=== PATIENT | male | born 1990 ===

== ENCOUNTER 2020-03-03 11:59 | Inpatient (IN) ==
[2020-03-03] MEDS ORDERED: GLUCAGON 1 MG VIAL IM PRN (14:25)
[2020-03-03] MEDS ORDERED: DEXTROSE 10% 250 ML BAG IV PRN (14:25)
[2020-03-03] MEDS ORDERED: chlordiazePOXIDE 10 MG CAPSULE PO PRN (15:02)
[2020-03-03 15:16] LABS: Basophils % 0.7 % (0.0-0.8); Eosinophils % 1.7 % (0.00-10.9); Hematocrit 34.5 VOL% (42.0-52.0); Hemoglobin 11.7 GM/DL (14.0-18.0); Immature Granulocytes % 0.6 %; Lymphocytes % 14.4 % (21.2-54.2); Mean Corpuscular HGB Conc 33.9 GM/DL (32-36); Mean Corpuscular Volume 101.8 FL (87-102); Mean Platelet Volume 11.3 FL (9.6-12.0); Monocytes % 13.3 % (1.7-12.7); Neutrophils % 69.3 % (38.7-73.9); Platelet Count 52 T/CUMM (130-400); Red Blood Count 3.39 MC/CUMM (3.8-5.5); Red Cell Distribution Width 15.6 % (9.3-17.3); White Blood Count 7.2 T/CUMM (4-12)
[2020-03-03 15:17] LABS: Basophils # 0.1 10*3/uL (0.0-0.2); Eosinophils # 0.1 10*3/uL (0.0-0.87); Immature Granulocytes Absolute 0.04 #
[2020-03-03 15:33] LABS: Alanine Aminotransferase 42 U/L (16-61); Albumin 2.2 G/DL (3.4-5.0); Alkaline Phosphatase 83 U/L (45-117); Aspartate Amino Transferase 152 U/L (0-37); Blood Urea Nitrogen 8 MG/DL (7-18); Calcium 7.9 MG/DL (8.5-10.1); Estimated Glom Filtration Rate 173 ML/MIN; Glucose 88 MG/DL (74-106); HDL Cholesterol < 10 MG/DL (40-60); Osmolality,Calculated 260.5 MOS/KG (273-304); Total Protein 7.3 G/DL (6.4-8.3); Triglycerides 211 MG/DL (2-150); VLDL CHOLESTEROL 42.2 MG/DL
[2020-03-03] MEDS: THIAMINE 100 MG TABLET PO SCH (15:39)
[2020-03-03] MEDS ORDERED: IBUPROFEN 600 MG TABLET PO ONE (15:42)
[2020-03-03] MEDS ORDERED: IBUPROFEN 600 MG TABLET PO PRN (15:42)
[2020-03-03] MEDS: POTASSIUM PHOS/SOD PHOS 250 MG TABLET PO SCH ×2 (16:52→22:35)
[2020-03-03] MEDS: PIPERACILLIN/TAZOBACTAM 3,375 MG in SODIUM CHLORIDE 0.9% 100 ML IV SCH (16:53)
[2020-03-03] MEDS: POTASSIUM CHLORIDE RIDER 10 MEQ in PREMIX 1 EACH IV PRN ×5 (16:54→22:51)
[2020-03-03] MEDS ORDERED: cefTRIAXone 1,000 MG in SYRINGE 1 EACH IV SCH (17:00)
[2020-03-03 17:12] LABS: Amorphous Crystals,Urine Occasional /HPF (Few); Apearance,Urine CLEAR (Clear); Bacteria,Urine Occasional /HPF (Few); Blood, Urine Negative (Negative); Glucose,Urine (UA) Negative (Negative); Ketones,Urine Negative (Negative); Mucus,Urine Occasional /LPF (Occasional); Nitrite,Urine Negative (Negative); Protein,Urine 30 MG/DL; Squamous Epithelial Cell,Urine Occasional /HPF (0-10); Urine Color Amber (Yellow); Urine Specific Gravity 1.017 (1.001-1.035)
[2020-03-03 17:14] LABS: Bilirubin,Urine Moderate mg/dL (Negative)
[2020-03-03] MEDS: FOLIC ACID 1 MG TABLET PO SCH (22:36)
[2020-03-03] MEDS: PANTOPRAZOLE 40 MG VIAL IV SCH (22:46)
[2020-03-04] MEDS: POTASSIUM CHLORIDE RIDER 10 MEQ in PREMIX 1 EACH IV PRN (00:51)
[2020-03-04] MEDS: PIPERACILLIN/TAZOBACTAM 3,375 MG in SODIUM CHLORIDE 0.9% 100 ML IV SCH ×3 (02:43→17:46)
[2020-03-04 02:59] LABS: Basophils # 0.1 10*3/uL (0.0-0.2); Basophils % 0.9 % (0.0-0.8); Eosinophils # 0.2 10*3/uL (0.0-0.87); Eosinophils % 2.5 % (0.00-10.9); Hematocrit 33.5 VOL% (42.0-52.0); Hemoglobin 11.5 GM/DL (14.0-18.0); Immature Granulocytes % 0.4 %; Immature Granulocytes Absolute 0.03 #; Lymphocytes % 15.1 % (21.2-54.2); Mean Corpuscular HGB Conc 34.3 GM/DL (32-36); Mean Platelet Volume 11.4 FL (9.6-12.0); Monocytes % 13.3 % (1.7-12.7); Neutrophils % 67.8 % (38.7-73.9); Red Blood Count 3.35 MC/CUMM (3.8-5.5); Red Cell Distribution Width 15.9 % (9.3-17.3); White Blood Count 6.7 T/CUMM (4-12)
[2020-03-04 03:05] LABS: Calcium 7.5 MG/DL (8.5-10.1); Osmolality,Calculated 264.2 MOS/KG (273-304); Total Protein 6.8 G/DL (6.4-8.3)
[2020-03-04 03:06] LABS: Calcium 7.3 MG/DL (8.5-10.1); Osmolality,Calculated 263.2 MOS/KG (273-304)
[2020-03-04 03:09] LABS: Bilirubin,Total 13.1 MG/DL (0.2-1.0)
[2020-03-04 03:18] LABS: Platelet Count 50 T/CUMM (130-400)
[2020-03-04] MEDS: MAGNESIUM SULF RIDER 2 GM in PREMIX 1 EACH IV PRN ×2 (06:44→15:35)
[2020-03-04 06:59] LABS: % Iron Saturation 47.3 % (18-50); Ferritin 1071.4 ng/ml (26-388)
[2020-03-04 07:06] LABS: Bilirubin,Direct 8.92 MG/DL (0.0-0.20); Bilirubin,Indirect 3.8 MG/DL (0.0-1.0); Total Protein 6.8 G/DL (6.4-8.3)
[2020-03-04 07:08] LABS: Bilirubin,Total 12.7 MG/DL (0.2-1.0)
[2020-03-04] MEDS: PANTOPRAZOLE 40 MG VIAL IV SCH ×2 (09:57→22:02)
[2020-03-04] MEDS: THIAMINE 100 MG TABLET PO SCH ×2 (10:03→11:14)
[2020-03-04] MEDS: FOLIC ACID 1 MG TABLET PO SCH ×3 (10:03→22:02)
[2020-03-04] MEDS: POTASSIUM PHOS/SOD PHOS 250 MG TABLET PO SCH ×3 (10:04→12:50)
[2020-03-04 10:24] LABS: Hepatitis B Core IgM Quant < 0.05 Index; Hepatitis B Surface Ag Quant < 0.10 Index; Hepatitis B Surface Ag Result Negative (Negative); Hepatitis C Virus Ab Quant 0.37 Index; Hepatitis C Virus Ab Result Negative (Negative)
[2020-03-04] MEDS: POTASSIUM CHLORIDE 20 MEQ TABLET PO PRN ×4 (11:14→17:46)
[2020-03-04] MEDS ORDERED: BISACODYL 5 MG TABLET PO ONE (12:00)
[2020-03-04] MEDS ORDERED: POLYETHYLENE GLYCOL POWDER 255 GM BOTTLE PO ONE (15:00)
[2020-03-05] MEDS: PIPERACILLIN/TAZOBACTAM 3,375 MG in SODIUM CHLORIDE 0.9% 100 ML IV SCH ×3 (00:24→17:52)
[2020-03-05] MEDS: POTASSIUM CHLORIDE 20 MEQ TABLET PO PRN ×4 (00:24→07:09)
[2020-03-05 05:47] LABS: Basophils # 0.1 10*3/uL (0.0-0.2); Basophils % 0.6 % (0.0-0.8); Eosinophils # 0.3 10*3/uL (0.0-0.87); Eosinophils % 3.2 % (0.00-10.9); Hematocrit 32.6 VOL% (42.0-52.0); Hemoglobin 11.3 GM/DL (14.0-18.0); Immature Granulocytes % 0.6 %; Immature Granulocytes Absolute 0.05 #; Lymphocytes # 1.1 10*3/uL (1.4-4.0); Lymphocytes % 14.1 % (21.2-54.2); Mean Corpuscular HGB Conc 34.7 GM/DL (32-36); Mean Corpuscular Volume 100.9 FL (87-102); Mean Platelet Volume 11.4 FL (9.6-12.0); Monocytes % 17.6 % (1.7-12.7); Neutrophils % 63.9 % (38.7-73.9); Red Blood Count 3.23 MC/CUMM (3.8-5.5); Red Cell Distribution Width 16.4 % (9.3-17.3); White Blood Count 7.9 T/CUMM (4-12)
[2020-03-05] MEDS ORDERED: MAGNESIUM CITRATE 300 ML BOTTLE PO ONE (06:00)
[2020-03-05 06:07] LABS: INR 1.6; PT Patient Result 16.6 SECS (9.8-11.9)
[2020-03-05 06:11] LABS: Platelet Count 64 T/CUMM (130-400)
[2020-03-05 06:14] LABS: Albumin 2.1 G/DL (3.4-5.0); Calcium 8.1 MG/DL (8.5-10.1); Osmolality,Calculated 261.5 MOS/KG (273-304)
[2020-03-05 06:28] LABS: Bilirubin,Total 14.7 MG/DL (0.2-1.0)
[2020-03-05 06:44] LABS: Band Neutrophils 2 % (0-10); Eosinophils 1 % (0-10); Hypochromasia 1+; Lymphocytes 9 % (20-55); Segmented Neutrophils 71 % (50-85); Total Cells Counted 100
[2020-03-05 06:45] LABS: Macrocytosis 1+; Platelet Estimate Decreased
[2020-03-05] MEDS ORDERED: POTASSIUM CHLORIDE 20 MEQ/15 ML UDCUP PO ONE (08:53)
[2020-03-05] MEDS ORDERED: propofoL 200 MG/20 ML VIAL IV ONE (09:00)
[2020-03-05] MEDS ORDERED: LIDOCAINE 2% 5 ML VIAL ONE (09:00)
[2020-03-05] MEDS: PANTOPRAZOLE 40 MG VIAL IV SCH ×2 (09:18→22:02)
[2020-03-05] MEDS: POTASSIUM CHLORIDE 20 MEQ TABLET PO SCH (10:07)
[2020-03-05] MEDS: FOLIC ACID 1 MG TABLET PO SCH ×2 (10:07→22:02)
[2020-03-05] MEDS: THIAMINE 100 MG TABLET PO SCH (10:08)
[2020-03-05] MEDS: POTASSIUM CHLORIDE INJ 30 MEQ in SODIUM CHLORIDE 0.9% 1,000 ML IV SCH ×2 (10:26→20:52)
[2020-03-05] MEDS ORDERED: MIDAZOLAM 2 MG/2 ML VIAL ONE (12:58)
[2020-03-05 14:06] LABS: Smooth Muscle Antibody Negative (Negative)
[2020-03-05] MEDS: POTASSIUM CHLORIDE RIDER 10 MEQ in PREMIX 1 EACH IV SCH (14:14)
[2020-03-05] MEDS: LACTATED RINGERS 1,000 ML IV SCH (14:14)
[2020-03-05 16:21] LABS: Antinuclear Ab, S 1.3 U
[2020-03-06] MEDS: PIPERACILLIN/TAZOBACTAM 3,375 MG in SODIUM CHLORIDE 0.9% 100 ML IV SCH ×3 (02:45→16:44)
[2020-03-06] MEDS: POTASSIUM CHLORIDE INJ 30 MEQ in SODIUM CHLORIDE 0.9% 1,000 ML IV SCH ×2 (04:58→14:43)
[2020-03-06] MEDS: FOLIC ACID 1 MG TABLET PO SCH ×2 (08:21→21:35)
[2020-03-06] MEDS: POTASSIUM CHLORIDE 20 MEQ TABLET PO SCH (08:21)
[2020-03-06] MEDS: THIAMINE 100 MG TABLET PO SCH (08:21)
[2020-03-06] MEDS: PANTOPRAZOLE 40 MG VIAL IV SCH ×2 (08:29→21:39)
[2020-03-06] MEDS ORDERED: LIDOCAINE 2% 5 ML VIAL ONE (09:00)
[2020-03-06] MEDS ORDERED: propofoL 200 MG/20 ML VIAL IV ONE (09:00)
[2020-03-06 09:14] LABS: Basophils # 0.1 10*3/uL (0.0-0.2); Basophils % 0.8 % (0.0-0.8); Eosinophils # 0.2 10*3/uL (0.0-0.87); Eosinophils % 3.3 % (0.00-10.9); Immature Granulocytes % 1.2 %; Immature Granulocytes Absolute 0.07 #; Lymphocytes % 16.4 % (21.2-54.2); Mean Corpuscular HGB Conc 33.3 GM/DL (32-36); Mean Corpuscular Volume 104.8 FL (87-102); Mean Platelet Volume 10.5 FL (9.6-12.0); Monocytes % 18.6 % (1.7-12.7); Neutrophils % 59.7 % (38.7-73.9); Red Blood Count 3.15 MC/CUMM (3.8-5.5); Red Cell Distribution Width 17.1 % (9.3-17.3)
[2020-03-06 09:26] LABS: Platelet Count 78 T/CUMM (130-400)
[2020-03-06 09:37] LABS: Albumin 1.9 G/DL (3.4-5.0); Calcium 7.9 MG/DL (8.5-10.1); Osmolality,Calculated 266.1 MOS/KG (273-304); Total Protein 6.8 G/DL (6.4-8.3)
[2020-03-06 09:40] LABS: Bilirubin,Total 13.8 MG/DL (0.2-1.0)
[2020-03-06 09:52] LABS: Atypical Lymphocytes Few; Band Neutrophils 3 % (0-10); Eosinophils 5 % (0-10); Hypochromasia 1+; Lymphocytes 17 % (20-55); Segmented Neutrophils 59 % (50-85); Total Cells Counted 100
[2020-03-06 09:53] LABS: Macrocytosis 1+
[2020-03-06] MEDS: LACTATED RINGERS 1,000 ML IV SCH ×2 (09:57→11:04)
[2020-03-06] MEDS: POTASSIUM CHLORIDE 20 MEQ TABLET PO PRN ×2 (14:43→16:43)
[2020-03-06] MEDS: PROPRANOLOL 20 MG TABLET PO SCH (21:35)
[2020-03-07] MEDS: PIPERACILLIN/TAZOBACTAM 3,375 MG in SODIUM CHLORIDE 0.9% 100 ML IV SCH ×2 (02:22→08:39)
[2020-03-07] MEDS: POTASSIUM CHLORIDE INJ 30 MEQ in SODIUM CHLORIDE 0.9% 1,000 ML IV SCH (04:52)
[2020-03-07 04:57] LABS: Basophils # 0.1 10*3/uL (0.0-0.2); Basophils % 1.2 % (0.0-0.8); Eosinophils # 0.2 10*3/uL (0.0-0.87); Hematocrit 33.6 VOL% (42.0-52.0); Hemoglobin 11.2 GM/DL (14.0-18.0); Immature Granulocytes Absolute 0.06 #; Lymphocytes # 1.1 10*3/uL (1.4-4.0); Lymphocytes % 17.5 % (21.2-54.2); Mean Corpuscular HGB Conc 33.3 GM/DL (32-36); Mean Corpuscular Volume 105.3 FL (87-102); Mean Platelet Volume 10.4 FL (9.6-12.0); Monocytes % 18.9 % (1.7-12.7); Neutrophils % 58.4 % (38.7-73.9); Platelet Count 91 T/CUMM (130-400); Red Blood Count 3.19 MC/CUMM (3.8-5.5); Red Cell Distribution Width 17.6 % (9.3-17.3)
[2020-03-07 05:21] LABS: Albumin 1.8 G/DL (3.4-5.0); Calcium 7.9 MG/DL (8.5-10.1); Osmolality,Calculated 265.2 MOS/KG (273-304); Total Protein 6.8 G/DL (6.4-8.3)
[2020-03-07 05:22] LABS: Calcium 7.9 MG/DL (8.5-10.1); Osmolality,Calculated 265.2 MOS/KG (273-304)
[2020-03-07 05:29] LABS: Bilirubin,Total 13.6 MG/DL (0.2-1.0)
[2020-03-07 05:33] LABS: Band Neutrophils 5 % (0-10); Eosinophils 3 % (0-10); Lymphocytes 18 % (20-55); Segmented Neutrophils 59 % (50-85); Total Cells Counted 100
[2020-03-07 05:34] LABS: Anisocytosis 1+
[2020-03-07 05:35] LABS: Macrocytosis 1+; Platelet Estimate Decreased
[2020-03-07] MEDS: POTASSIUM CHLORIDE 20 MEQ TABLET PO PRN (06:03)
[2020-03-07 08:03] VITALS: BP 118/67
[2020-03-07] MEDS: PROPRANOLOL 20 MG TABLET PO SCH (08:38)
[2020-03-07] MEDS: THIAMINE 100 MG TABLET PO SCH (08:38)
[2020-03-07] MEDS: POTASSIUM CHLORIDE 20 MEQ TABLET PO SCH (08:38)
[2020-03-07] MEDS: FOLIC ACID 1 MG TABLET PO SCH (08:38)
[2020-03-07] MEDS: PANTOPRAZOLE 40 MG VIAL IV SCH (08:39)
== END 2020-03-07 10:27 | disposition home or self-care (01) | DRG 432 ==
LOC: SUATTDRO 13:50 → N.TELES 13:50
PROVIDERS: ADMIT Internal Medicine; ATTEND Family Medicine

== ENCOUNTER 2020-03-16 10:00 | Inpatient (IN) ==
[~2020-03-16 10:00] MED LIST: LIDOCAINE 2% 5 ML VIAL ONE; propofoL 200 MG/20 ML VIAL IV ONE
[2020-03-16] MEDS ORDERED: DEXTROSE 10% 250 ML BAG IV PRN ×2 (12:52→14:09)
[2020-03-16] MEDS ORDERED: GLUCAGON 1 MG VIAL IM PRN ×2 (12:52→14:09)
[2020-03-16 13:24] LABS: Basophils % 0.4 % (0.0-0.8); Eosinophils # 0.1 10*3/uL (0.0-0.87); Eosinophils % 0.5 % (0.00-10.9); Hematocrit 22.7 VOL% (42.0-52.0); Hemoglobin 7.8 GM/DL (14.0-18.0); Immature Granulocytes % 2.3 %; Immature Granulocytes Absolute 0.25 #; Lymphocytes # 0.8 10*3/uL (1.4-4.0); Lymphocytes % 7.6 % (21.2-54.2); Mean Corpuscular HGB Conc 34.4 GM/DL (32-36); Mean Corpuscular Volume 104.6 FL (87-102); Mean Platelet Volume 10.6 FL (9.6-12.0); Monocytes % 9.9 % (1.7-12.7); Neutrophils % 79.3 % (38.7-73.9); Platelet Count 153 T/CUMM (130-400); Red Blood Count 2.17 MC/CUMM (3.8-5.5); Red Cell Distribution Width 17.1 % (9.3-17.3); White Blood Count 10.7 T/CUMM (4-12)
[2020-03-16 13:51] LABS: Albumin 1.7 G/DL (3.4-5.0); Calcium 7.8 MG/DL (8.5-10.1); Osmolality,Calculated 263.4 MOS/KG (273-304); Total Protein 6.2 G/DL (6.4-8.3)
[2020-03-16 13:54] LABS: Bilirubin,Total 24.9 MG/DL (0.2-1.0)
[2020-03-16] MEDS ORDERED: ONDANSETRON 4 MG/2 ML VIAL IV PRN (14:09)
[2020-03-16] MEDS ORDERED: SODIUM CHLORIDE 0.9% 1,000 ML IV PRN ×2 (14:13→16:04)
[2020-03-16] MEDS ORDERED: LORazepam 0.5 MG TABLET PO PRN (14:16)
[2020-03-16 14:31] LABS: Band Neutrophils 17 % (0-10); Eosinophils 1 % (0-10); Lymphocytes 10 % (20-55); Metamyelocytes 1 %; Nucleated Red Blood Cells 1 (0-5); Segmented Neutrophils 67 % (50-85); Total Cells Counted 100
[2020-03-16 14:32] LABS: Anisocytosis Slight; Macrocytosis Slight; Platelet Estimate Normal
[2020-03-16 14:33] LABS: Polychromasia Slight
[2020-03-16] MEDS: LACTULOSE 20 GM/30 ML UDCUP PO SCH ×2 (15:47→17:40)
[2020-03-16] MEDS: SODIUM CHLORIDE 0.9% 1,000 ML IV SCH (15:47)
[2020-03-16] MEDS: SODIUM BICARB INJ 100 MEQ in SODIUM CHLORIDE 0.45% 1,000 ML IV SCH (17:05)
[2020-03-16] MEDS: RIFAXIMIN 550 MG TABLET PO SCH (22:00)
[2020-03-17] MEDS: FOLIC ACID 1 MG TABLET PO SCH ×3 (00:59→20:17)
[2020-03-17] MEDS: PANTOPRAZOLE 40 MG VIAL IV SCH ×3 (01:06→20:18)
[2020-03-17] MEDS: SODIUM BICARB INJ 100 MEQ in SODIUM CHLORIDE 0.45% 1,000 ML IV SCH ×2 (01:06→10:45)
[2020-03-17] MEDS: LACTULOSE 20 GM/30 ML UDCUP PO SCH ×7 (01:10→20:17)
[2020-03-17 05:45] LABS: Basophils % 0.1 % (0.0-0.8); Eosinophils % 0.2 % (0.00-10.9); Hematocrit 25.7 VOL% (42.0-52.0); Hemoglobin 9.1 GM/DL (14.0-18.0); Immature Granulocytes % 2.4 %; Immature Granulocytes Absolute 0.33 #; Lymphocytes % 7.1 % (21.2-54.2); Mean Corpuscular HGB Conc 35.4 GM/DL (32-36); Mean Corpuscular Volume 97.3 FL (87-102); Mean Platelet Volume 10.9 FL (9.6-12.0); Monocytes % 12.2 % (1.7-12.7); Platelet Count 126 T/CUMM (130-400); Red Blood Count 2.64 MC/CUMM (3.8-5.5); Red Cell Distribution Width 18.2 % (9.3-17.3); White Blood Count 13.9 T/CUMM (4-12)
[2020-03-17 06:14] LABS: Band Neutrophils 6 % (0-10); Eosinophils 2 % (0-10); Hypochromasia 1+; Lymphocytes 5 % (20-55); Segmented Neutrophils 77 % (50-85); Total Cells Counted 100
[2020-03-17 06:15] LABS: Macrocytosis Slight
[2020-03-17 06:42] LABS: Albumin 1.4 G/DL (3.4-5.0); Calcium 7.8 MG/DL (8.5-10.1); Osmolality,Calculated 269.1 MOS/KG (273-304)
[2020-03-17 06:45] LABS: Bilirubin,Total 24.3 MG/DL (0.2-1.0)
[2020-03-17] MEDS: RIFAXIMIN 550 MG TABLET PO SCH ×2 (08:22→20:18)
[2020-03-17] MEDS: SODIUM CHLORIDE 0.9% 1,000 ML IV SCH ×3 (08:23→10:45)
[2020-03-17] MEDS: POTASSIUM CHLORIDE 20 MEQ TABLET PO PRN ×4 (12:06→20:17)
[2020-03-17] MEDS: SODIUM BICARB INJ 150 MEQ in STERILE WATER INJ 850 ML IV SCH ×2 (15:10→18:40)
[2020-03-17] MEDS: SODIUM BICARB INJ 100 MEQ in DEXTROSE 5% NACL 0.45% 1,000 ML IV SCH ×2 (15:11→15:14)
[2020-03-17 17:20] LABS: Apearance,Urine Cloudy (Clear); Urine Color Brown (Yellow); Urine Specific Gravity 1.025 (1.001-1.035)
[2020-03-17 17:21] LABS: Bilirubin,Urine 4 mg/dL (Negative); Blood, Urine Trace mg/dL (Negative); Glucose,Urine (UA) 50 mg/dL (Negative); Ketones,Urine Negative (Negative); Nitrite,Urine Negative (Negative); Protein,Urine 100 MG/DL; RBC,Urine Rare /HPF (0-4)
[2020-03-17 17:22] LABS: Squamous Epithelial Cell,Urine 5 /HPF (0-10); WBC,Urine 3 /HPF (0-6)
[2020-03-17 17:23] LABS: Bacteria,Urine Many /HPF (Few)
[2020-03-17 17:36] LABS: Microalbum/Creat Ratio Random 104.2 RATIO (0-30)
[2020-03-18] MEDS: LACTULOSE 20 GM/30 ML UDCUP PO SCH ×7 (00:52→21:46)
[2020-03-18] MEDS: SODIUM BICARB INJ 100 MEQ in DEXTROSE 5% NACL 0.45% 1,000 ML IV SCH ×6 (01:20→22:11)
[2020-03-18 02:30] LABS: Basophils % 0.2 % (0.0-0.8); Eosinophils # 0.3 10*3/uL (0.0-0.87); Eosinophils % 1.9 % (0.00-10.9); Hematocrit 23.4 VOL% (42.0-52.0); Hemoglobin 8.5 GM/DL (14.0-18.0); Immature Granulocytes % 4.1 %; Immature Granulocytes Absolute 0.61 #; Lymphocytes % 6.8 % (21.2-54.2); Mean Corpuscular HGB Conc 36.3 GM/DL (32-36); Mean Corpuscular Volume 96.3 FL (87-102); Mean Platelet Volume 10.9 FL (9.6-12.0); NRBC # 0.02 10*3/uL; Platelet Count 121 T/CUMM (130-400); Red Blood Count 2.43 MC/CUMM (3.8-5.5); White Blood Count 14.8 T/CUMM (4-12)
[2020-03-18 04:07] LABS: Albumin 1.4 G/DL (3.4-5.0); Calcium 7.6 MG/DL (8.5-10.1); Osmolality,Calculated 276.9 MOS/KG (273-304); Total Protein 5.9 G/DL (6.4-8.3)
[2020-03-18 04:09] LABS: Bilirubin,Total 24.4 MG/DL (0.2-1.0)
[2020-03-18 04:49] LABS: Band Neutrophils 2 % (0-10); Eosinophils 5 % (0-10); Hypochromasia 1+; Lymphocytes 6 % (20-55); Platelet Estimate Decreased; Segmented Neutrophils 78 % (50-85); Total Cells Counted 100
[2020-03-18 04:50] LABS: Macrocytosis Slight
[2020-03-18] MEDS ORDERED: SODIUM PHOSPHATE ENEMA 133 ML BOTTLE RECTAL ONE (06:00)
[2020-03-18] MEDS ORDERED: ceFAZolin 1,000 MG in SYRINGE 1 EACH IV ONE (09:00)
[2020-03-18] MEDS: FOLIC ACID 1 MG TABLET PO SCH ×3 (09:15→21:45)
[2020-03-18] MEDS: SODIUM CHLORIDE 0.9% 1,000 ML IV SCH (09:15)
[2020-03-18] MEDS: PANTOPRAZOLE 40 MG VIAL IV SCH ×3 (09:15→21:46)
[2020-03-18] MEDS: RIFAXIMIN 550 MG TABLET PO SCH ×3 (09:15→21:45)
[2020-03-18] MEDS ORDERED: LIDOCAINE 1%/EPI INJ 20 ML VIAL ONE (11:38)
[2020-03-18] MEDS ORDERED: BUPIVACAINE MPF 0.25% 30 ML VIAL ONE (11:38)
[2020-03-18] MEDS ORDERED: HEPARIN 5,000 UNIT/1 ML VIAL ONE (11:38)
[2020-03-18] MEDS ORDERED: SODIUM CHLORIDE 0.9% 250 ML IV SCH (13:00)
[2020-03-18] MEDS ORDERED: ceFAZolin 1,000 MG VIAL ONE (13:06)
[2020-03-18] MEDS ORDERED: propofoL 200 MG/20 ML VIAL IV ONE (13:30)
[2020-03-18] MEDS ORDERED: MIDAZOLAM 2 MG/2 ML VIAL ONE (13:31)
[2020-03-18] MEDS ORDERED: ETOMIDATE 40 MG/20 ML VIAL IV ONE (13:31)
[2020-03-18] MEDS ORDERED: SODIUM CHLORIDE 0.9% 100 ML IV ONE (13:31)
[2020-03-18 14:26] LABS: Hepatitis B Core IgM Quant 0.06 Index; Hepatitis B Surface Ag Quant < 0.10 Index; Hepatitis B Surface Ag Result Negative (Negative); Hepatitis C Virus Ab Quant 0.31 Index; Hepatitis C Virus Ab Result Negative (Negative)
[2020-03-18] MEDS: POTASSIUM CHLORIDE 20 MEQ TABLET PO PRN ×4 (16:14→23:28)
[2020-03-18] MEDS: predniSONE 20 MG TABLET PO SCH ×2 (16:53→17:00)
[2020-03-18] MEDS: cefTRIAXone 1,000 MG in SYRINGE 1 EACH IV SCH (16:53)
[2020-03-18 17:36] LABS: Hematocrit 23.4 VOL% (42.0-52.0); Hemoglobin 8.3 GM/DL (14.0-18.0)
[2020-03-18] MEDS ORDERED: HEPARIN 10,000 UNIT/10 ML VIAL IV SCH (20:45)
[2020-03-19] MEDS: LACTULOSE 20 GM/30 ML UDCUP PO SCH ×6 (02:18→21:33)
[2020-03-19] MEDS: SODIUM BICARB INJ 100 MEQ in DEXTROSE 5% NACL 0.45% 1,000 ML IV SCH ×3 (04:40→22:36)
[2020-03-19 05:49] LABS: Basophils % 0.2 % (0.0-0.8); Eosinophils % 0.1 % (0.00-10.9); Hematocrit 22.7 VOL% (42.0-52.0); Hemoglobin 8.4 GM/DL (14.0-18.0); Immature Granulocytes % 4.7 %; Immature Granulocytes Absolute 0.59 #; Lymphocytes # 0.5 10*3/uL (1.4-4.0); Lymphocytes % 3.9 % (21.2-54.2); Mean Corpuscular Volume 93.8 FL (87-102); Mean Platelet Volume 10.9 FL (9.6-12.0); Monocytes % 8.9 % (1.7-12.7); Neutrophils % 82.2 % (38.7-73.9); Platelet Count 123 T/CUMM (130-400); Red Blood Count 2.42 MC/CUMM (3.8-5.5); Red Cell Distribution Width 17.6 % (9.3-17.3); White Blood Count 12.5 T/CUMM (4-12)
[2020-03-19] MEDS ORDERED: SODIUM PHOSPHATE ENEMA 133 ML BOTTLE RECTAL ONE (06:00)
[2020-03-19 06:11] LABS: Albumin 1.3 G/DL (3.4-5.0); Calcium 7.3 MG/DL (8.5-10.1); Osmolality,Calculated 275.1 MOS/KG (273-304); Total Protein 5.7 G/DL (6.4-8.3)
[2020-03-19 06:17] LABS: Bilirubin,Total 24.3 MG/DL (0.2-1.0)
[2020-03-19 06:38] LABS: Band Neutrophils 8 % (0-10); Lymphocytes 3 % (20-55); Platelet Estimate Decreased; Segmented Neutrophils 81 % (50-85); Total Cells Counted 100
[2020-03-19 06:39] LABS: Hypochromasia 2+
[2020-03-19] MEDS: SODIUM CHLORIDE 0.9% 1,000 ML IV SCH (12:09)
[2020-03-19] MEDS: FOLIC ACID 1 MG TABLET PO SCH ×2 (14:38→20:44)
[2020-03-19] MEDS: predniSONE 20 MG TABLET PO SCH (14:39)
[2020-03-19] MEDS: RIFAXIMIN 550 MG TABLET PO SCH ×2 (14:39→20:44)
[2020-03-19] MEDS: PANTOPRAZOLE 40 MG VIAL IV SCH ×2 (14:42→20:44)
[2020-03-19] MEDS: POTASSIUM CHLORIDE 20 MEQ TABLET PO PRN (15:57)
[2020-03-19] MEDS ORDERED: POTASSIUM CHLORIDE RIDER 100 ML IV ONE (17:34)
[2020-03-19] MEDS: cefTRIAXone 1,000 MG in SYRINGE 1 EACH IV SCH (17:37)
[2020-03-20] MEDS: LACTULOSE 20 GM/30 ML UDCUP PO SCH ×6 (02:01→22:10)
[2020-03-20 05:46] LABS: INR 1.7; PT Patient Result 17.7 SECS (9.8-11.9)
[2020-03-20 06:08] LABS: Albumin 1.5 G/DL (3.4-5.0); Calcium 6.7 MG/DL (8.5-10.1); Osmolality,Calculated 283.8 MOS/KG (273-304); Total Protein 5.7 G/DL (6.4-8.3)
[2020-03-20 06:11] LABS: Bilirubin,Total 23.9 MG/DL (0.2-1.0)
[2020-03-20] MEDS: SODIUM BICARB INJ 100 MEQ in DEXTROSE 5% NACL 0.45% 1,000 ML IV SCH ×3 (07:17→20:59)
[2020-03-20 09:07] LABS: Basophils % 0.1 % (0.0-0.8); Hemoglobin 8.4 GM/DL (14.0-18.0); Immature Granulocytes % 4.1 %; Lymphocytes # 0.6 10*3/uL (1.4-4.0); Lymphocytes % 4.4 % (21.2-54.2); Mean Corpuscular HGB Conc 36.5 GM/DL (32-36); Mean Corpuscular Volume 97.9 FL (87-102); Mean Platelet Volume 10.9 FL (9.6-12.0); Neutrophils % 81.4 % (38.7-73.9); Platelet Count 115 T/CUMM (130-400); Red Blood Count 2.35 MC/CUMM (3.8-5.5); Red Cell Distribution Width 17.9 % (9.3-17.3); White Blood Count 14.5 T/CUMM (4-12)
[2020-03-20 09:26] LABS: Lymphocytes 3 % (20-55); Segmented Neutrophils 87 % (50-85); Total Cells Counted 100
[2020-03-20 09:27] LABS: Hypochromasia 1+; Platelet Estimate Decreased
[2020-03-20] MEDS: predniSONE 20 MG TABLET PO SCH (11:31)
[2020-03-20] MEDS: PANTOPRAZOLE 40 MG VIAL IV SCH ×2 (11:32→20:56)
[2020-03-20] MEDS: RIFAXIMIN 550 MG TABLET PO SCH ×2 (11:32→20:55)
[2020-03-20] MEDS: FOLIC ACID 1 MG TABLET PO SCH ×2 (11:32→20:55)
[2020-03-20] MEDS: POTASSIUM CHLORIDE 20 MEQ TABLET PO PRN ×4 (11:32→18:19)
[2020-03-20] MEDS: cefTRIAXone 1,000 MG in SYRINGE 1 EACH IV SCH (17:16)
[2020-03-21] MEDS: LACTULOSE 20 GM/30 ML UDCUP PO SCH ×5 (02:18→20:28)
[2020-03-21 07:17] LABS: Albumin 1.6 G/DL (3.4-5.0); Calcium 7.2 MG/DL (8.5-10.1); Osmolality,Calculated 278.5 MOS/KG (273-304); Total Protein 5.8 G/DL (6.4-8.3)
[2020-03-21 07:18] LABS: Bilirubin,Total 27.4 MG/DL (0.2-1.0)
[2020-03-21] MEDS: POTASSIUM CHLORIDE 20 MEQ TABLET PO PRN ×5 (09:28→17:19)
[2020-03-21] MEDS: predniSONE 20 MG TABLET PO SCH (09:28)
[2020-03-21] MEDS: FOLIC ACID 1 MG TABLET PO SCH ×2 (09:28→22:06)
[2020-03-21] MEDS: PANTOPRAZOLE 40 MG VIAL IV SCH ×2 (09:29→22:07)
[2020-03-21] MEDS: RIFAXIMIN 550 MG TABLET PO SCH ×2 (09:30→22:06)
[2020-03-21] MEDS: SODIUM BICARB INJ 100 MEQ in DEXTROSE 5% NACL 0.45% 1,000 ML IV SCH (09:35)
[2020-03-21] MEDS: cefTRIAXone 1,000 MG in SYRINGE 1 EACH IV SCH (17:19)
[2020-03-22] MEDS: LACTULOSE 20 GM/30 ML UDCUP PO SCH ×4 (01:20→19:46)
[2020-03-22 06:34] LABS: Albumin 1.6 G/DL (3.4-5.0); Calcium 7.8 MG/DL (8.5-10.1); Osmolality,Calculated 283.7 MOS/KG (273-304)
[2020-03-22 06:37] LABS: Bilirubin,Total 29.9 MG/DL (0.2-1.0)
[2020-03-22] MEDS: POTASSIUM CHLORIDE 20 MEQ TABLET PO PRN (06:52)
[2020-03-22] MEDS: RIFAXIMIN 550 MG TABLET PO SCH ×2 (08:38→22:24)
[2020-03-22] MEDS: POTASSIUM CHLORIDE 20 MEQ TABLET PO SCH (08:38)
[2020-03-22] MEDS: FOLIC ACID 1 MG TABLET PO SCH ×2 (08:38→22:24)
[2020-03-22] MEDS: SODIUM BICARBONATE 650 MG TABLET PO SCH ×3 (08:38→22:24)
[2020-03-22] MEDS: THIAMINE 100 MG TABLET PO SCH (08:38)
[2020-03-22] MEDS: PANTOPRAZOLE 40 MG VIAL IV SCH ×2 (08:39→22:27)
[2020-03-22] MEDS: ALBUMIN 25% 25 GM in PREMIX 1 EACH IV SCH ×2 (08:39→17:09)
[2020-03-22] MEDS: prednisoLONE 15 MG/5 ML ORAL.SYR PO SCH (09:45)
[2020-03-22] MEDS: PENTOXIFYLLINE 400 MG TABLET PO SCH (14:30)
[2020-03-22] MEDS: cefTRIAXone 1,000 MG in SYRINGE 1 EACH IV SCH (17:09)
[2020-03-23] MEDS: ALBUMIN 25% 25 GM in PREMIX 1 EACH IV SCH ×3 (00:27→15:20)
[2020-03-23] MEDS: LACTULOSE 20 GM/30 ML UDCUP PO SCH ×4 (02:12→21:14)
[2020-03-23 05:43] LABS: Basophils % 0.1 % (0.0-0.8); Hematocrit 23.3 VOL% (42.0-52.0); Hemoglobin 8.3 GM/DL (14.0-18.0); Immature Granulocytes % 6.9 %; Lymphocytes % 4.6 % (21.2-54.2); Mean Corpuscular HGB Conc 35.6 GM/DL (32-36); Mean Corpuscular Volume 98.7 FL (87-102); Mean Platelet Volume 11.8 FL (9.6-12.0); Monocytes % 11.1 % (1.7-12.7); Neutrophils % 77.3 % (38.7-73.9); Platelet Count 63 T/CUMM (130-400); Red Blood Count 2.36 MC/CUMM (3.8-5.5); Red Cell Distribution Width 18.3 % (9.3-17.3); White Blood Count 21.7 T/CUMM (4-12)
[2020-03-23 06:08] LABS: Albumin 2.1 G/DL (3.4-5.0); Calcium 8.3 MG/DL (8.5-10.1); Osmolality,Calculated 284.9 MOS/KG (273-304); Total Protein 5.6 G/DL (6.4-8.3)
[2020-03-23 06:12] LABS: Bilirubin,Total 28.7 MG/DL (0.2-1.0)
[2020-03-23 06:15] LABS: Band Neutrophils 2 % (0-10); Hypochromasia 1+; Lymphocytes 4 % (20-55); Platelet Estimate Decreased; Segmented Neutrophils 89 % (50-85); Total Cells Counted 100
[2020-03-23] MEDS: SODIUM BICARBONATE 650 MG TABLET PO SCH ×3 (15:14→22:02)
[2020-03-23] MEDS: PANTOPRAZOLE 40 MG VIAL IV SCH ×2 (15:18→22:02)
[2020-03-23] MEDS: prednisoLONE 15 MG/5 ML ORAL.SYR PO SCH (15:18)
[2020-03-23] MEDS: RIFAXIMIN 550 MG TABLET PO SCH ×2 (15:20→22:02)
[2020-03-23] MEDS: THIAMINE 100 MG TABLET PO SCH (15:20)
[2020-03-23] MEDS: POTASSIUM CHLORIDE 20 MEQ TABLET PO SCH (15:20)
[2020-03-23] MEDS: FOLIC ACID 1 MG TABLET PO SCH ×2 (15:20→22:02)
[2020-03-23] MEDS: PENTOXIFYLLINE 400 MG TABLET PO SCH (15:20)
[2020-03-23] MEDS: cefTRIAXone 1,000 MG in SYRINGE 1 EACH IV SCH (16:39)
[2020-03-24] MEDS: ALBUMIN 25% 25 GM in PREMIX 1 EACH IV SCH ×4 (00:18→23:58)
[2020-03-24] MEDS: LACTULOSE 20 GM/30 ML UDCUP PO SCH ×4 (00:59→20:51)
[2020-03-24 06:33] LABS: INR 2.2; PT Patient Result 22.4 SECS (9.8-11.9)
[2020-03-24 06:47] LABS: Albumin 2.5 G/DL (3.4-5.0); Calcium 8.5 MG/DL (8.5-10.1); Osmolality,Calculated 281.7 MOS/KG (273-304); Total Protein 5.5 G/DL (6.4-8.3)
[2020-03-24 06:54] LABS: Bilirubin,Total 30.7 MG/DL (0.2-1.0)
[2020-03-24] MEDS: SODIUM BICARBONATE 650 MG TABLET PO SCH ×3 (08:22→20:52)
[2020-03-24] MEDS: RIFAXIMIN 550 MG TABLET PO SCH ×2 (08:22→20:52)
[2020-03-24] MEDS: THIAMINE 100 MG TABLET PO SCH (08:22)
[2020-03-24] MEDS: PENTOXIFYLLINE 400 MG TABLET PO SCH (08:22)
[2020-03-24] MEDS: PANTOPRAZOLE 40 MG VIAL IV SCH ×2 (08:22→20:52)
[2020-03-24] MEDS: POTASSIUM CHLORIDE 20 MEQ TABLET PO SCH (08:22)
[2020-03-24] MEDS: FOLIC ACID 1 MG TABLET PO SCH ×2 (08:22→20:52)
[2020-03-24] MEDS: prednisoLONE 15 MG/5 ML ORAL.SYR PO SCH (08:41)
[2020-03-24] MEDS ORDERED: ACETAMINOPHEN 325 MG/10.15 ML UDCUP PO ONE (14:16)
[2020-03-24] MEDS: cefTRIAXone 1,000 MG in SYRINGE 1 EACH IV SCH (16:07)
[2020-03-25] MEDS: LACTULOSE 20 GM/30 ML UDCUP PO SCH ×4 (01:00→20:17)
[2020-03-25] MEDS: ALBUMIN 25% 25 GM in PREMIX 1 EACH IV SCH (09:14)
[2020-03-25] MEDS: prednisoLONE 15 MG/5 ML ORAL.SYR PO SCH (09:15)
[2020-03-25] MEDS: PANTOPRAZOLE 40 MG VIAL IV SCH ×2 (09:18→21:08)
[2020-03-25] MEDS: SODIUM BICARBONATE 650 MG TABLET PO SCH ×3 (09:19→21:07)
[2020-03-25] MEDS: POTASSIUM CHLORIDE 20 MEQ TABLET PO SCH (09:19)
[2020-03-25] MEDS: PENTOXIFYLLINE 400 MG TABLET PO SCH (09:19)
[2020-03-25] MEDS: FOLIC ACID 1 MG TABLET PO SCH ×2 (09:19→21:07)
[2020-03-25] MEDS: THIAMINE 100 MG TABLET PO SCH (09:20)
[2020-03-25] MEDS: RIFAXIMIN 550 MG TABLET PO SCH ×2 (09:20→21:06)
[2020-03-25 09:24] LABS: Basophils % 0.1 % (0.0-0.8); Eosinophils # 0.1 10*3/uL (0.0-0.87); Eosinophils % 0.3 % (0.00-10.9); Hematocrit 20.7 VOL% (42.0-52.0); Hemoglobin 7.3 GM/DL (14.0-18.0); Immature Granulocytes % 3.4 %; Lymphocytes # 1.3 10*3/uL (1.4-4.0); Mean Corpuscular HGB Conc 35.3 GM/DL (32-36); Mean Platelet Volume 11.6 FL (9.6-12.0); Monocytes % 7.9 % (1.7-12.7); Neutrophils % 83.3 % (38.7-73.9); Red Blood Count 2.09 MC/CUMM (3.8-5.5); Red Cell Distribution Width 18.6 % (9.3-17.3); White Blood Count 26.6 T/CUMM (4-12)
[2020-03-25 09:25] LABS: Platelet Count 53 T/CUMM (130-400)
[2020-03-25 09:30] LABS: INR 2.2; PT Patient Result 22.4 SECS (9.8-11.9)
[2020-03-25 09:51] LABS: Band Neutrophils 2 % (0-10); Hypochromasia 1+; Lymphocytes 5 % (20-55); Platelet Estimate Decreased; Segmented Neutrophils 92 % (50-85); Total Cells Counted 100
[2020-03-25 10:02] LABS: Albumin 2.5 G/DL (3.4-5.0); Calcium 9.1 MG/DL (8.5-10.1); Osmolality,Calculated 284.2 MOS/KG (273-304); Total Protein 5.5 G/DL (6.4-8.3)
[2020-03-25 10:04] LABS: Bilirubin,Total 30.8 MG/DL (0.2-1.0)
[2020-03-25] MEDS: AMPICILLIN 500 MG CAPSULE PO SCH ×2 (17:24→21:07)
[2020-03-25] MEDS: cefTRIAXone 1,000 MG in SYRINGE 1 EACH IV SCH (17:25)
[2020-03-26] MEDS: LACTULOSE 20 GM/30 ML UDCUP PO SCH ×4 (02:30→20:20)
[2020-03-26 05:05] LABS: Basophils % 0.1 % (0.0-0.8); Hematocrit 23.8 VOL% (42.0-52.0); Hemoglobin 8.1 GM/DL (14.0-18.0); Immature Granulocytes % 3.1 %; Immature Granulocytes Absolute 1.04 #; Mean Platelet Volume 11.6 FL (9.6-12.0); Monocytes % 7.1 % (1.7-12.7); Neutrophils % 86.7 % (38.7-73.9); Platelet Count 69 T/CUMM (130-400); Red Blood Count 2.31 MC/CUMM (3.8-5.5); Red Cell Distribution Width 18.5 % (9.3-17.3); White Blood Count 33.5 T/CUMM (4-12)
[2020-03-26 05:11] LABS: INR 2.1; PT Patient Result 21.3 SECS (9.8-11.9)
[2020-03-26 05:30] LABS: Hypochromasia 1+; Ovalocytes Slight; Platelet Estimate Decreased
[2020-03-26 05:38] LABS: Albumin 2.8 G/DL (3.4-5.0); Calcium 9.2 MG/DL (8.5-10.1); Osmolality,Calculated 292.9 MOS/KG (273-304); Total Protein 5.7 G/DL (6.4-8.3)
[2020-03-26] MEDS: FOLIC ACID 1 MG TABLET PO SCH ×2 (09:55→22:17)
[2020-03-26] MEDS: prednisoLONE 15 MG/5 ML ORAL.SYR PO SCH (09:55)
[2020-03-26] MEDS: AMPICILLIN 500 MG CAPSULE PO SCH ×4 (09:55→22:17)
[2020-03-26] MEDS: RIFAXIMIN 550 MG TABLET PO SCH ×2 (09:56→22:17)
[2020-03-26] MEDS: PANTOPRAZOLE 40 MG VIAL IV SCH ×2 (09:56→22:18)
[2020-03-26] MEDS: POTASSIUM CHLORIDE 20 MEQ TABLET PO SCH (09:56)
[2020-03-26] MEDS: SODIUM BICARBONATE 650 MG TABLET PO SCH ×3 (09:56→22:17)
[2020-03-26] MEDS: THIAMINE 100 MG TABLET PO SCH (09:56)
[2020-03-26] MEDS: PENTOXIFYLLINE 400 MG TABLET PO SCH (15:02)
[2020-03-26] MEDS: cefTRIAXone 1,000 MG in SYRINGE 1 EACH IV SCH (16:54)
[2020-03-27] MEDS: LACTULOSE 20 GM/30 ML UDCUP PO SCH ×3 (02:17→15:49)
[2020-03-27 10:02] LABS: Albumin 2.7 G/DL (3.4-5.0); Bilirubin,Direct 27.06 MG/DL (0.0-0.20)
[2020-03-27 10:05] LABS: Bilirubin,Total 35.1 MG/DL (0.2-1.0)
[2020-03-27] MEDS: prednisoLONE 15 MG/5 ML ORAL.SYR PO SCH (12:17)
[2020-03-27] MEDS: AMPICILLIN 500 MG CAPSULE PO SCH ×2 (12:18→17:43)
[2020-03-27] MEDS: FOLIC ACID 1 MG TABLET PO SCH (12:18)
[2020-03-27] MEDS: PANTOPRAZOLE 40 MG VIAL IV SCH (12:19)
[2020-03-27] MEDS: SODIUM BICARBONATE 650 MG TABLET PO SCH ×2 (12:19→15:49)
[2020-03-27] MEDS: THIAMINE 100 MG TABLET PO SCH (12:19)
[2020-03-27] MEDS: RIFAXIMIN 550 MG TABLET PO SCH (12:19)
[2020-03-27] MEDS: PENTOXIFYLLINE 400 MG TABLET PO SCH (12:24)
[2020-03-27 16:35] VITALS: BP 113/52
[2020-03-27] MEDS: cefTRIAXone 1,000 MG in SYRINGE 1 EACH IV SCH (17:43)
== END 2020-03-27 19:25 | disposition home or self-care (01) | DRG 279 ==
LOC: N.TELES 11:59 → SUATTDRO 11:59
PROVIDERS: ADMIT Internal Medicine; ATTEND Family Medicine

== ENCOUNTER 2020-04-06 01:21 | Inpatient (IN) ==
[2020-04-06] MEDS: NOREPINEPHRINE 16 MG in SODIUM CHLORIDE 0.9% 234 ML IV PRN ×3 (03:03→19:17)
[2020-04-06] MEDS ORDERED: SODIUM CHLORIDE 0.9% 1,000 ML IV PRN ×3 (03:17→23:11)
[2020-04-06] MEDS ORDERED: VASOPRESSIN 100 UNITS in SODIUM CHLORIDE 0.9% 95 ML IV PRN (03:22)
[2020-04-06] MEDS ORDERED: SODIUM BICARBONATE 50 MEQ/50 ML VIAL IV ONE ×3 (03:22→23:04)
[2020-04-06] MEDS ORDERED: DEXTROSE 5% NACL 0.9% 1,000 ML IV SCH (03:30)
[2020-04-06] MEDS ORDERED: ONDANSETRON 4 MG/2 ML VIAL IV PRN (03:32)
[2020-04-06] MEDS ORDERED: LACTULOSE 20 GM/30 ML UDCUP PO PRN (03:32)
[2020-04-06] MEDS ORDERED: GLUCAGON 1 MG VIAL IM PRN (03:32)
[2020-04-06 03:42] LABS: Basophils % 0.1 % (0.0-0.8); Eosinophils # 0.1 10*3/uL (0.0-0.87); Eosinophils % 0.4 % (0.00-10.9); Immature Granulocytes % 5.7 %; Immature Granulocytes Absolute 1.73 #; Lymphocytes # 2.3 10*3/uL (1.4-4.0); Lymphocytes % 7.7 % (21.2-54.2); Mean Corpuscular HGB Conc 31.3 GM/DL (32-36); Mean Corpuscular Volume 116.4 FL (87-102); Mean Platelet Volume 12.6 FL (9.6-12.0); Monocytes % 8.2 % (1.7-12.7); NRBC # 0.29 10*3/uL; Neutrophils % 77.9 % (38.7-73.9); Platelet Count 50 T/CUMM (130-400); Red Cell Distribution Width 21.7 % (9.3-17.3); White Blood Count 30.1 T/CUMM (4-12)
[2020-04-06 03:54] LABS: Hematocrit 12.8 VOL% (42.0-52.0)
[2020-04-06 04:00] LABS: Albumin 1.4 G/DL (3.4-5.0); Osmolality,Calculated 294.5 MOS/KG (273-304); Total Protein 3.6 G/DL (6.4-8.3)
[2020-04-06] MEDS ORDERED: OCTREOTIDE 100 MCG/ML SYRINGE IV ONE (04:00)
[2020-04-06] MEDS ORDERED: PANTOPRAZOLE INJ 200 MG in SODIUM CHLORIDE 0.9% 250 ML IV SCH (04:00)
[2020-04-06] MEDS ORDERED: cefTRIAXone 1,000 MG in SYRINGE 1 EACH IV SCH (04:00)
[2020-04-06 04:02] LABS: Bilirubin,Total 23.8 MG/DL (0.2-1.0)
[2020-04-06] MEDS: OCTREOTIDE 500 MCG in SODIUM CHLORIDE 0.9% 100 ML IV SCH ×2 (04:25→14:19)
[2020-04-06] MEDS ORDERED: cefTRIAXone 2,000 MG in SYRINGE 1 EACH IV SCH (04:30)
[2020-04-06 04:47] LABS: Band Neutrophils 1 % (0-10); Lymphocytes 3 % (20-55); Nucleated Red Blood Cells 1 (0-5); Segmented Neutrophils 92 % (50-85); Total Cells Counted 100
[2020-04-06 04:48] LABS: Acanthocytes Few; Anisocytosis 1+; Hypochromasia 1+; Platelet Estimate Decreased; Target Cells 1+
[2020-04-06] MEDS ORDERED: diphenhydrAMINE 50 MG/1 ML VIAL IV ONE (05:15)
[2020-04-06] MEDS ORDERED: methylPREDNISolone SOD SUC 40 MG/1 ML VIAL IV ONE (05:16)
[2020-04-06] MEDS ORDERED: diphenhydrAMINE 50 MG/1 ML VIAL ONE (05:18)
[2020-04-06] MEDS ORDERED: methylPREDNISolone SOD SUC 40 MG/1 ML VIAL ONE (05:19)
[2020-04-06] MEDS ORDERED: SUCCINYLCHOLINE 200 MG/10 ML VIAL ONE (07:36)
[2020-04-06 08:44] LABS: ABG Base Excess -17.9 MMOL/L (-2.5-2.5); ABG HCO3 10.6 MMOL/L (20-26); ABG Oxygen Saturation 99.9 % (95-100); ABG PCO2 26.3 MM HG (35-48); ABG TCO2 9.3 MMOL/L (23-27)
[2020-04-06 08:47] LABS: ABG PH 7.164 (7.35-7.45)
[2020-04-06] MEDS ORDERED: prednisoLONE 15 MG/5 ML ORAL.SYR PO SCH (09:00)
[2020-04-06 10:10] LABS: ABG Base Excess -17.3 MMOL/L (-2.5-2.5); ABG PCO2 24.9 MM HG (35-48); ABG TCO2 9.4 MMOL/L (23-27)
[2020-04-06 10:12] LABS: ABG PH 7.195 (7.35-7.45)
[2020-04-06 10:19] LABS: Hematocrit 19.1 VOL% (42.0-52.0)
[2020-04-06 10:23] LABS: Hemoglobin 5.9 GM/DL (14.0-18.0)
[2020-04-06] MEDS: RIFAXIMIN 550 MG TABLET PO SCH (10:32)
[2020-04-06] MEDS: SODIUM BICARBONATE 650 MG TABLET PO SCH (10:32)
[2020-04-06] MEDS: DEXTROSE 10% 250 ML BAG IV PRN ×2 (12:34→21:47)
[2020-04-06] MEDS: DEXTROSE 10% 500 ML IV SCH ×2 (12:55→21:31)
[2020-04-06 16:57] LABS: Hematocrit 28.9 VOL% (42.0-52.0); Hemoglobin 9.5 GM/DL (14.0-18.0)
[2020-04-06] MEDS ORDERED: ALBUMIN 25% 25 GM in PREMIX 1 EACH IV PRN (17:06)
[2020-04-06] MEDS ORDERED: HEPARIN 10,000 UNIT/10 ML VIAL IV SCH (17:15)
[2020-04-06] MEDS ORDERED: DOPamine 800 MG/250 ML PREMIX IV PRN (17:16)
[2020-04-06] MEDS ORDERED: DOPamine 800 MG/250 ML PREMIX IV ONE (17:17)
[2020-04-06 21:04] LABS: ABG Base Excess -10.3 MMOL/L (-2.5-2.5); ABG Oxygen Saturation 92.6 % (95-100); Hematocrit Heart Surgery 24.2 PERCENT (42-52); Hemoglobin Heart Surgery 7.8 G/DL (14.0-18.0)
[2020-04-06 21:11] LABS: Glucose Heart Surgery 39 MG/DL (74-106)
[2020-04-06 21:27] LABS: Basophils # 0.1 10*3/uL (0.0-0.2); Basophils % 0.2 % (0.0-0.8); Eosinophils # 0.3 10*3/uL (0.0-0.87); Hematocrit 21.2 VOL% (42.0-52.0); Hemoglobin 7.2 GM/DL (14.0-18.0); Immature Granulocytes % 12.5 %; Immature Granulocytes Absolute 3.48 #; Lymphocytes # 4.9 10*3/uL (1.4-4.0); Lymphocytes % 17.4 % (21.2-54.2); Mean Corpuscular Volume 95.5 FL (87-102); Mean Platelet Volume 10.2 FL (9.6-12.0); Monocytes % 6.8 % (1.7-12.7); NRBC # 3.87 10*3/uL; Neutrophils % 62.1 % (38.7-73.9); Red Blood Count 2.22 MC/CUMM (3.8-5.5); Red Cell Distribution Width 23.9 % (9.3-17.3); White Blood Count 27.9 T/CUMM (4-12)
[2020-04-06 21:30] LABS: Platelet Count 30 T/CUMM (130-400)
[2020-04-06 21:38] LABS: Eosinophils 1 % (0-10); Lymphocytes 14 % (20-55); Metamyelocytes 6 %; Myelocytes 2 %; Nucleated Red Blood Cells 10 (0-5); Segmented Neutrophils 72 % (50-85); Total Cells Counted 100
[2020-04-06 21:39] LABS: Anisocytosis 2+; Burr Cells 1+; Hypochromasia 1+; Macrocytosis Slight
[2020-04-06 21:40] LABS: Platelet Estimate Adequate
[2020-04-06] MEDS ORDERED: HYDROCORTISONE 100 MG VIAL IV ONE (22:00)
[2020-04-06 22:41] LABS: PT Patient Result > 178.9 SECS (9.8-11.9)
[2020-04-06 22:42] LABS: INR > 17.0
[2020-04-06] MEDS ORDERED: CALCIUM GLUCONATE 1,000 MG/10 ML VIAL IV ONE (22:50)
[2020-04-06] MEDS ORDERED: EPINEPHrine 1 MG/ML VIAL ONE ×2 (23:38→23:48)
[2020-04-06] MEDS ORDERED: SODIUM BICARBONATE 10 MEQ/10 ML SYRINGE IV ONE (23:38)
[2020-04-07] MEDS: RIFAXIMIN 550 MG TABLET PO SCH (01:42)
[2020-04-07] MEDS: SODIUM BICARBONATE 650 MG TABLET PO SCH (01:42)
[2020-04-07 02:18] VITALS: BP 100/36
[2020-04-07] MEDS: OCTREOTIDE 500 MCG in SODIUM CHLORIDE 0.9% 100 ML IV SCH (02:32)
[2020-04-07] MEDS ORDERED: HYDROCORTISONE 100 MG VIAL IV SCH (04:00)
== END 2020-04-06 23:52 | disposition expired | DRG 280 ==
LOC: SUATTDRO 03:09 → N.ICU 03:09
PROVIDERS: ADMIT Internal Medicine; ATTEND Internal Medicine